=== PATIENT | male | born 1955 | race Two or more races ===

== ENCOUNTER 2018-01-07 10:41 | Day surgery (SDC) | payer BC ==
[2018-01-05 10:15] VITALS: BMI 31.4
[~2018-01-07 10:41] MED LIST: LACTATED RINGERS 1,000 ML IV SCH
[2018-01-07] MEDS ORDERED: LIDOCAINE 1% 20 ML VIAL (10MG/ML) FOR IV START INTRADERMA ONE (11:59)
[2018-01-07 12:01] VITALS: TEMP 97.7
[2018-01-07] MEDS ORDERED: LIDOCAINE 1% INJ 10MG/ML (20 ML MDV) ONE (12:08)
[2018-01-07] MEDS ORDERED: PROPOFOL 10 MG/ML 20 ML VIAL IV ONE (12:08)
--- NOTE | 2018-01-07 12:08 | P.GSHP ---
History of Present Illness H&P Date: 01/07/18 Chief Complaint: Rectal bleeding Patient has noticed some recent rectal bleeding. Here today for colonoscopy. No other bowel complaints. Rectal bleeding has been at the last several weeks. Past Medical History Past Medical History: GERD/Reflux, Thyroid Disorder Additional Past Medical History / Comment(s): Low thyroid, blood in stool. Ankle sprain. History of Any Multi-Drug Resistant Organisms: None Reported Past Surgical History: No Surgical Hx Reported Additional Past Surgical History / Comment(s): Colonoscopy Past Anesthesia/Blood Transfusion Reactions: No Reported Reaction Additional Past Anesthesia/Blood Transfusion Reaction / Comment(s): Never under anesthesia Smoking Status: Former smoker - Past Family History Father Family Medical History: Cancer, Neurologic Disorder Additional Family Medical History / Comment(s): Colon cancer, Parkinson's Mother Family Medical History: Cancer Additional Family Medical History / Comment(s): Colon cancer, Lung Medications and Allergies Home Medications Medication Instructions Recorded Confirmed Type Ibuprofen [Motrin] 600 mg PO Q8HR PRN 01/05/18 01/05/18 History Naproxen 250 mg PO DAILY 01/05/18 01/05/18 History Papaya 1 each PO Q8H 01/05/18 01/05/18 History Allergies Allergy/AdvReac Type Severity Reaction Status Date / Time No Known Allergies Allergy Verified 01/07/18 11:43 Surgical - Exam Vital Signs Temp Pulse Resp BP Pulse Ox 97.7 F 83 16 113/79 95 01/07/18 12:00 01/07/18 12:00 01/07/18 12:00 01/07/18 12:00 01/07/18 12:00 Physical exam: General: Well-developed, well-nourished HEENT: Normocephalic, sclerae nonicteric Abdomen: Nontender, nondistended Extremities: No edema Neuro: Alert and oriented Assessment and Plan (1) Rectal bleeding Narrative/Plan: Will proceed with colonoscopy. Current Visit: Yes Status: Acute Code(s): K62.5 - HEMORRHAGE OF ANUS AND RECTUM SNOMED Code(s): 31959592
--- NOTE | 2018-01-07 12:23 | P.PCN ---
Date of Procedure: 01/07/18 Procedure(s) Performed: PREOPERATIVE DIAGNOSIS: GI bleed POSTOPERATIVE DIAGNOSIS: Diverticulosis, small hemorrhoids PROCEDURE: Colonoscopy ANESTHESIA: MAC SURGEON: Srinivasa Singleton M.D. SPECIMENS: None ENDOSCOPIC PROCEDURE: The patient was placed on the endoscopy table in the left decubitus position. The Olympus colonoscope was inserted into the anus and passed under direct visualization to the base of the cecum. The appendiceal orifice was visualized. From that point the scope was slowly withdrawn inspecting all surfaces carefully. There were no neoplastic inflammatory or polypoid lesions throughout the cecum, ascending, transverse, descending, sigmoid and rectum. There was moderate left-sided diverticulosis noted. Digital rectal examination revealed small internal and external hemorrhoids without any active bleeding. The patient was taken to the recovery room in stable condition per anesthesia guidelines. RECOMMENDATIONS: Increase fiber. Follow colonoscopy in 10 years.
[2018-01-07 12:31] VITALS: RESP 18
[2018-01-07 12:48] VITALS: BP 117/72; PULSE 83
--- NOTE | 2018-01-09 14:38 | CDI ---
Outpatient Documentation Clarification Form Date: 01/09/18 CDS/Ash Conveyor Operator Name: Kelli Franklin Phone: If any questions, call Dina Finnegan Qualitative Executive Researcher at [phone] Patient Name: Caroline Orozco Admit Date: 01/07/18 Discharge Date: 01/07/18 ATTENTION: The [facility] Coding Staff appreciate your assistance in clarifying documentation. Please respond to the clarification below the line at the bottom and electronically sign. The [facility] Coding staff will review the response and follow-up if needed. Please note: Queries are made part of the Legal Health Record. If you have any questions, please contact the Qualitative Executive Researcher. Dear Dr. Singleton, What is the cause of the rectal bleeding? What is the cause of the GI bleeding? Thank you for your kind consideration. Etiology of GI bleeding unclear but likely hemorrhoidal. MTDD
== END 2018-01-07 13:03 | disposition home or self-care (01) ==
LOC: ORWHC2ENDO 10:41
PROVIDERS: ATTEND Surgery
DX: K92.2 Gastrointestinal hemorrhage, unspecified (principal); K57.30 Diverticulosis of large intestine without perforation or abscess without bleeding; K64.8 Other hemorrhoids; K64.4 Residual hemorrhoidal skin tags; K21.9 Gastro-esophageal reflux disease without esophagitis; E03.9 Hypothyroidism, unspecified; Z79.1 Long term (current) use of non-steroidal anti-inflammatories (NSAID); Z87.891 Personal history of nicotine dependence
CPT/HCPCS: 45378; J2001; J2704

== ENCOUNTER 2023-06-10 08:32 | Emergency (ER) | payer MEDICARE, BC ==
[2023-06-10] MEDS ORDERED: TOPICAL SKIN ADHESIVE 1 EACH AMP TOPICAL ONE (09:03)
[2023-06-10] MEDS: LIDOCAINE/EPINEPHR/TETRACAINE 5 ML BOTTLE TOPICAL ONE (09:11)
[2023-06-10] MEDS: LIDOCAINE 1% INJ 10MG/ML (20 ML MDV) SQ ONE (09:19)
--- NOTE | 2023-06-10 09:29 | ED ---
Head Injury HPI - General Chief complaint: Wound/Laceration Stated complaint: FALL,facial Lac Time Seen by Provider: 06/10/23 08:46 Source: patient, family, RN notes reviewed Mode of arrival: ambulatory Limitations: no limitations - History of Present Illness Initial comments: This is a 68-year-old male who presents to the emergency department for a head injury. Patient tripped and fell and hit his head on his dresser. Denies any loss of consciousness. Not taking any blood thinners. He does have a laceration above the left eyebrow. Tetanus vaccine is up-to-date. Complaint: head injury - Related Data Home Medications Medication Instructions Recorded Confirmed Ibuprofen [Motrin] 600 mg PO Q8HR PRN 01/05/18 01/05/18 Naproxen 250 mg PO DAILY 01/05/18 01/05/18 Papaya 1 each PO Q8H 01/05/18 01/05/18 Allergies/Adverse reactions: Allergies Allergy/AdvReac Type Severity Reaction Status Date / Time No Known Allergies Allergy Verified 01/07/18 11:43 Review of Systems ROS Statement: Those systems with pertinent positive or pertinent negative responses have been documented in the HPI. ROS Other: All systems not noted in ROS Statement are negative. Past Medical History Past Medical History: GERD/Reflux, Thyroid Disorder Additional Past Medical History / Comment(s): Low thyroid, blood in stool. Ankle sprain. History of Any Multi-Drug Resistant Organisms: None Reported Past Surgical History: No Surgical Hx Reported Additional Past Surgical History / Comment(s): Colonoscopy Past Anesthesia/Blood Transfusion Reactions: No Reported Reaction Additional Past Anesthesia/Blood Transfusion Reaction / Comment(s): Never under anesthesia Past Psychological History: No Psychological Hx Reported Past Alcohol Use History: Occasional Past Drug Use History: None Reported - Past Family History Father Family Medical History: Cancer, Neurologic Disorder Additional Family Medical History / Comment(s): Colon cancer, Parkinson's Mother Family Medical History: Cancer Additional Family Medical History / Comment(s): Colon cancer, Lung General Exam Limitations: no limitations General appearance: alert, in no apparent distress Head exam: Present: other (3 cm laceration above the left eyebrow. Minor active bleeding.) Eye exam: Present: normal appearance, PERRL, EOMI. Absent: scleral icterus, conjunctival injection, periorbital swelling Respiratory exam: Present: normal lung sounds bilaterally. Absent: respiratory distress, wheezes, rales, rhonchi, stridor Cardiovascular Exam: Present: regular rate, normal rhythm, normal heart sounds. Absent: systolic murmur, diastolic murmur, rubs, gallop, clicks Neurological exam: Present: alert, oriented X3, CN II-XII intact Psychiatric exam: Present: normal affect, normal mood Course Vital Signs 06/10/23 06/10/23 08:38 09:42 Temperature 97.8 F 98.2 F Pulse Rate 100 84 Respiratory 20 18 Rate Blood Pressure 124/88 112/79 O2 Sat by Pulse 99 96 Oximetry Procedures - Laceration Laceration #1 Consent Obtained: verbal consent Indication: laceration Site: face Size (cm): 3 Description: linear Depth: simple, single layer Anesthetic Used: lidocaine 1% Anesthesia Technique: local infiltration Amount (mls): 3 Pre-repair: wound explored, irrigated extensively Type of Sutures: nylon Size of Sutures: 6-0 Number of Sutures: 4 Technique: simple, interrupted Medical Decision Making - Medical Decision Making This is a 68 year old male who presents to the emergency department for a head injury. Was pt. sent in by a medical professional or institution? @ -No Did you speak to anyone other than the patient for history? @ -No Did you review nursing and triage notes? @ -Yes, and I agree, it is accurate with regards to the patient's symptoms. Were old charts reviewed? @ -No Differential Diagnosis? @ -Differential Diagnosis Head Injury: Contusion, hematoma, intracranial hemorrhage, skull fracture, whiplash, concussion, this is not meant to be an all-inclusive list. EKG interpreted by me (3pts min.)? @ -Not obtained X-rays interpreted by me (1pt min.)? @ -Not obtained CT interpreted by me (1pt min.)? @ -CT scan of the brain obtained. My interpretation identifies no evidence of an acute intracranial hemorrhage. U/S interpreted by me (1pt. min.)? @ -Not obtained What testing was considered but not performed? (CT, X-rays, U/S, labs)? Why? @ -None What meds were considered but not given? Why? @ -None Did you discuss the management of the patient with other professionals? @ -No Did you reconcile home meds? @ -No Was smoking cessation discussed for >3mins.? @ -No Was critical care preformed (if so, how long)? @ -No Were there social determinants of health that impacted care today? How? (Homelessness, low income, unemployed, alcoholism, drug addiction, transportation, low edu. Level, literacy, decrease access to med. care, intermediate, rehab)? @ -No Was there de-escalation of care discussed even if they declined? (Discuss DNR or withdrawal of care, Hospice)? @ -No What co-morbidities impacted this encounter? (DM, HTN, Smoking, COPD, CAD, Cancer, CVA, Hep., AIDS, mental health diagnosis, sleep apnea, morbid obesity)? @ -None Was patient admitted / discharged? @ -Discharged. CT scan of the brain obtained revealing no acute process. Laceration was repaired with sutures. Patient's tetanus vaccine is already up-to-date. He is advised to return in 7 to 10 days for suture removal. Advised ibuprofen and Tylenol as needed for pain relief. Patient discharged home in stable condition. Undiagnosed new problem with uncertain prognosis? @ -None Drug Therapy requiring intensive monitoring for toxicity (Heparin, Nitro, Insulin, Cardizem)? @ -None Were any procedures done? @ -Laceration repair with sutures. Diagnosis/symptom? @ -Head injury, laceration Acute, or Chronic, or Acute on Chronic? @ -Acute Uncomplicated (without systemic symptoms) or Complicated (systemic symptoms)? @ -Uncomplicated Side effects of treatment? @ -None Exacerbation, Progression, or Severe Exacerbation] @ -Not applicable Poses a threat to life or bodily function? @ -No Return precautions reviewed in depth, the patient is instructed to return to the emergency department with any new, worsening, or concerning symptoms. Patient verbalized understanding. This case was discussed in detail with the attending ED physician, Dr. Long. Presentation, findings, and treatment plan discussed in detail as well. - Radiology Data Radiology results: report reviewed, image reviewed Disposition Clinical Impression: Laceration, Head injury Disposition: HOME SELF-CARE Instructions (If sedation given, give patient instructions): Care For Your Stitches (ED) Additional Instructions: Return to the emergency department with any new, worsening, or concerning symptoms and in 7-10 days for removal of the stitches. Alternate with Ibuprofen and Tylenol as needed for pain relief. Follow up with your primary care provider in 1-2 days. Is patient prescribed a controlled substance at d/c from ED?: No Referrals: Rayray Miranda MD [Primary Care Provider] - 1-2 days Time of Disposition: 10:00
--- NOTE | 2023-06-10 09:55 | CT ---
EXAMINATION TYPE: CT brain wo con CT DLP: 1195.4 mGycm, Automated exposure control for dose reduction was used. DATE OF EXAM: 06/10/2023 9:34 AM COMPARISON: None. CLINICAL INDICATION:Male, 68 years old with history of Head injury, Fall, struck forehead on dresser TECHNIQUE: Brain: Axial CT images of the brain were obtained with coronal and sagittal reformats created and rev iewed. Contrast used: None. Oral contrast used: None. FINDINGS: Brain: Extra-axial spaces: No abnormal extra-axial fluid collections. Ventricular system: Dilatation in proportion to cerebral atrophy. Cerebral parenchyma: Cerebral atrophy. No acute intraparenchymal hemorrhage or mass effect. The scanlon -white junction is well differentiated. Scattered hypoattenuating areas are seen within the white mat ter. Cerebellum: Unremarkable. Mass effect: No evidence of midline shift. Intracranial vasculature: Atherosclerotic calcifications of the intracranial vessels. Soft tissues: Left scalp soft tissue edema. Calvarium/osseous structures: No depressed skull fracture. Paranasal sinuses and mastoid air cells: Mild scattered paranasal sinus disease. Visualized orbits: Orbital contents are intact. IMPRESSION: 1. No acute intracranial process. 2. Nonspecific white matter changes, likely secondary to chronic small vessel ischemic disease. 3. Left scalp edema. No evidence of fracture.
[2023-06-10 10:34] VITALS: BP 112/79; PULSE 84; RESP 18; TEMP 98.2
== END 2023-06-10 10:10 | disposition home or self-care (01) ==
LOC: EC 08:32
DX: S01.81XA Laceration without foreign body of other part of head, initial encounter (principal); W01.0XXA Fall on same level from slipping, tripping and stumbling without subsequent striking against object, initial encounter
CPT/HCPCS: 70450; 99284; 12011; J2001

== ENCOUNTER → 2023-08-20 | Outpatient (CLI) | payer MEDICARE, BC ==
--- NOTE | 2023-08-26 12:07 | FL ---
EXAMINATION TYPE: FL barium swallow DATE OF EXAM: 08/20/2023 COMPARISON: None HISTORY: Gastroesophageal reflux phlegm sticking in throat TECHNIQUE: A double air contrast esophagram study is performed. FINDINGS: HILLARY: 1607.73 Fluoroscopy time: 16 seconds Images: 79 Esophagus dilates to normal caliber is normal contour to the gastroesophageal junction. Gastroesophag eal junction opens to normal caliber. No intraluminal or extramural defects are evident. Contrast pas ses easily without hesitancy or stenosis. Note is made of a self reducing sliding type hiatal hernia identified during the examination. IMPRESSION: 1. Small hiatal hernia. 2. Esophagus otherwise appears unremarkable.
== END | disposition home or self-care (01) ==
LOC: RADUSWWP 09:17
PROVIDERS: ATTEND Otolaryngology
DX: K44.9 Diaphragmatic hernia without obstruction or gangrene (principal); K21.9 Gastro-esophageal reflux disease without esophagitis
CPT/HCPCS: 74220

== ENCOUNTER 2023-10-24 09:56 | Day surgery (SDC) | payer MEDICARE, BC ==
[2023-10-21 14:13] VITALS: BMI 40.5
[~2023-10-24 09:56] MED LIST changes: -LACTATED RINGERS 1,000 ML IV SCH; +LIDOCAINE 1% (10MG/ML) FOR IV START INTRADERMA PRN
[2023-10-24] MEDS: LACTATED RINGERS 1,000 ML IV SCH (10:27)
[2023-10-24] MEDS: IV FLUID CONTINUATION 1,000 ML IV ONE (10:32)
[2023-10-24 10:37] VITALS: TEMP 97.7
[2023-10-24] MEDS ORDERED: PROPOFOL 10 MG/ML 20 ML VIAL IV ONE (11:24)
--- NOTE | 2023-10-24 11:35 | P.PCN ---
Date of Procedure: 10/24/23 Procedure(s) Performed: BRIEF HISTORY: Patient is a 68-year-old, pleasant, white male scheduled for endoscopy as a part evaluation of chronic cough for the last 10 years duration. He denies any heartburn. No dysphagia or odynophagia. He has seen ENT recently.. PROCEDURE PERFORMED: Esophagogastroduodenoscopy with biopsy. PREOPERATIVE DIAGNOSIS: Chronic cough. IV sedation per anesthesia. PROCEDURE: After informed consent was obtained, the patient was brought into the endoscopy unit. IV sedation was administered by Anesthesia under continuous monitoring. Initially the Olympus GIF-140 video endoscope was inserted into the mouth. Esophagus intubated without any difficulty. It was gradually advanced into the stomach and duodenum and carefully examined. The bulb and the second part of the duodenum appeared normal. The scope at this time was withdrawn to the stomach, adequately insufflated with air, and upon careful examination, mucosa of the antrum had linear areas of erythema in the antrum consistent with gastritis and biopsies were done from this area. Mucosa of the, body, cardia and the fundus appeared normal. The scope was then withdrawn into the esophagus. Small hiatal hernia noted. The GE junction was located at 43 cm from the incisors. It appeared irregular but no no erosions or ulcerations seen. Rest of the esophagus appeared normal. Biopsies were done from the distal esophagus and the patient tolerated the procedure well. IMPRESSION: 1. Small hiatal hernia. 2. Irregular GE junction but no evidence of esophagitis 3. Mild antral gastritis. RECOMMENDATIONS: The findings of this examination were discussed with the patient as well as his family. He was advised to follow-up with the biopsy results. Recommend a trial of omeprazole 20 mg daily for 3 months to see for any improvement in his symptoms..
[2023-10-24 12:13] VITALS: BP 122/70; PULSE 65; RESP 20
== END 2023-10-24 12:25 | disposition home or self-care (01) ==
LOC: ORWHC2ENDO 09:56
PROVIDERS: ATTEND Internal Medicine Gastroenterology
DX: K29.50 Unspecified chronic gastritis without bleeding (principal); K44.9 Diaphragmatic hernia without obstruction or gangrene; K31.A0 Gastric intestinal metaplasia, unspecified; E78.5 Hyperlipidemia, unspecified; E07.9 Disorder of thyroid, unspecified; K21.9 Gastro-esophageal reflux disease without esophagitis; Z79.890 Hormone replacement therapy; Z79.899 Other long term (current) drug therapy; Z88.0 Allergy status to penicillin
CPT/HCPCS: 88305; 43239; J2704

== ENCOUNTER 2024-02-08 08:33 | Emergency (ER) | payer MEDICARE, BC ==
[2024-02-08 08:45] VITALS: TEMP 98.4
--- NOTE | 2024-02-08 09:51 | ED ---
General Adult HPI - General Source: patient, RN notes reviewed, old records reviewed Mode of arrival: ambulatory Limitations: no limitations <Sky Long - Last Filed: 02/08/24 09:49> - General Source: patient, RN notes reviewed, old records reviewed Mode of arrival: ambulatory Limitations: no limitations <Karina Pérez - Last Filed: 02/08/24 14:06> - General Chief complaint: Extremity Problem,Nontraumatic Stated complaint: numbness in legs Time Seen by Provider: 02/08/24 09:35 - History of Present Illness Initial comments: Quick note: Patient is a 68-year-old male who presents emergency department complaining of lower extremity numbness as well as pain. Has a history of diab etes, GERD, thyroid disorder. Is not on blood thinners. States that for the last approximately 10 days has been noticing shooting pains coming from his feet along the posterior aspect of both legs as well as numbness in the sock distribution of both legs. Also some tingling on the bottom of his feet and his toes. Occasion will have pain shoot from his lumbar spine as well down the posterior aspect of both legs. Patient is uncertain what is going on as this is new. No new injuries. No new medications. Is concerned regarding possibly a circulation. Presents for further evaluation at this time. Patient does have a history of hyperlipidemia. (Sky Long) 68-year-old male presenting to the ER with a chief complaint of bilateral lower extremity numbness and pain. Patient states for the past 10 days he has had increasing of numbness and tingling sensation to bilateral lower extremities. He states that for started on the bottom of his feet and slowly traveled up to the back of his calf. He states he does have shooting pain in his posterior thigh into his back. Patient is concerned he is not getting blood flow to his toes. Patient does report a couple of days ago he noticed "bulging vessels" on posterior calf which also worried him about blood flow. He denies any injuries or traumas. Patient denies a history of diabetes. Patient denies any history of DVTs/PEs or recent travel. No history of vascular disease. No current blood thinning medications. Denies chest pain, shortness of breath or other complaints. Denies any saddle paresthesias or bowel or bladder incontinence. (Karina Pérez) - Related Data Home Medications Medication Instructions Recorded Confirmed Levothyroxine Sodium [Synthroid] 75 mcg PO DAILY 10/21/23 02/08/24 Pravastatin Sodium [Pravachol] 20 mg PO HS 10/21/23 02/08/24 Albuterol Inhaler [Ventolin Hfa 2 puff INHALATION RT-Q6H PRN 02/08/24 02/08/24 Inhaler] Albuterol Nebulized [Ventolin 2.5 mg INHALATION RT-QID PRN 02/08/24 02/08/24 Nebulized] Ergocalciferol (Vitamin D2) 1,250 mcg PO Q14D 02/08/24 02/08/24 [Drisdol (50,000 Iu)] Fluticasone Propion/Salmeterol 1 puff INHALATION RT-BID 02/08/24 02/08/24 [Wixela 250-50 Inhub] Ibuprofen [Motrin] 800 mg PO QID PRN 02/08/24 02/08/24 Omeprazole 20 mg PO DAILY 02/08/24 02/08/24 Sildenafil Citrate [Sildenafil] 20 - 100 mg PO DAILY PRN 02/08/24 02/08/24 Allergies Allergy/AdvReac Type Severity Reaction Status Date / Time amoxicillin Allergy Rash/Hives Verified 02/08/24 12:32 Review of Systems ROS Other: All systems not noted in ROS Statement are negative. <Sky Long - Last Filed: 02/08/24 09:49> ROS Other: All systems not noted in ROS Statement are negative. <Karina Pérez - Last Filed: 02/08/24 14:06> ROS Statement: Those systems with pertinent positive or pertinent negative responses have been documented in the HPI. Past Medical History Past Medical History: GERD/Reflux, Thyroid Disorder Additional Past Medical History / Comment(s): Low thyroid, blood in stool. Ankle sprain. History of Any Multi-Drug Resistant Organisms: None Reported Past Surgical History: No Surgical Hx Reported Additional Past Surgical History / Comment(s): Colonoscopy Past Anesthesia/Blood Transfusion Reactions: No Reported Reaction Additional Past Anesthesia/Blood Transfusion Reaction / Comment(s): no general anesth. hx Past Psychological History: No Psychological Hx Reported Smoking Status: Former smoker Past Alcohol Use History: Occasional Past Drug Use History: None Reported - Past Family History Father Family Medical History: Cancer, Neurologic Disorder Additional Family Medical History / Comment(s): Colon cancer, Parkinson's Mother Family Medical History: Cancer Additional Family Medical History / Comment(s): Colon cancer, Lung <Sky Long - Last Filed: 02/08/24 09:49> General Exam Limitations: no limitations <Sky Long - Last Filed: 02/08/24 09:49> General appearance: alert, in no apparent distress Respiratory exam: Present: normal lung sounds bilaterally. Absent: respiratory distress, wheezes, rales, rhonchi, stridor Cardiovascular Exam: Present: regular rate, normal rhythm, normal heart sounds. Absent: systolic murmur, diastolic murmur, rubs, gallop, clicks Extremities exam: Present: normal inspection, full ROM, normal capillary refill, other (2+ bilateral dorsalis pedis and posterior tibialis pulses. Varicose veins noted on bilateral popliteal fossa). Absent: tenderness, pedal edema, joint swelling, calf tenderness Back exam: Present: normal inspection Neurological exam: Present: alert, oriented X3, CN II-XII intact Skin exam: Present: warm, dry, intact, normal color. Absent: rash <Karina Pérez - Last Filed: 02/08/24 14:06> - General Exam Comments Initial Comments: General: Appears in no acute distress. HEAD: Normal with no signs of head trauma. EYES: EOMI. ENT: Hearing grossly intact. RESPIRATORY: No respiratory distress. C/V: Regular rate and rhythm. ABD: Abdomen is nondistended. EXT: No obvious deformity. SKIN: No rashes or lesions observed on exposed skin. NEURO: Alert and oriented. (Sky Long) Course Vital Signs 02/08/24 02/08/24 08:42 12:59 Temperature 98.4 F Pulse Rate 92 71 Respiratory 20 16 Rate Blood Pressure 138/87 133/81 O2 Sat by Pulse 98 100 Oximetry Medical Decision Making <Sky Long - Last Filed: 02/08/24 09:49> - Lab Data Result diagrams: 02/08/24 10:07 02/08/24 10:07 - Radiology Data Radiology results: report reviewed, image reviewed <Karina Pérez - Last Filed: 02/08/24 14:06> - Medical Decision Making Quick note portion of this visit completed by Dr. Sky Long MD. (Sky Long) Was pt. sent in by a medical professional or institution (, ROBERTO, MIXING TECHNICIAN, urgent care, hospital, or long term...) When possible be specific @ -No Did you speak to anyone other than the patient for history (EMS, parent, family, police, friend...)? What history was obtained from this source @ -, at bedside, aiding in HPI and past medical history. Did you review nursing and triage notes (agree or disagree)? Why? @ -I reviewed and agree with nursing and triage notes Were old charts reviewed (outside hosp., previous admission, EMS record, old EKG, old radiological studies, urgent care reports/EKG's, long term records)? Report findings @ -No old charts were reviewed Differential Diagnosis (chest pain, altered mental status, abdominal pain women, abdominal pain men, vaginal bleeding, weakness, fever, dyspnea, syncope, headache, dizziness, GI bleed, back pain, seizure, CVA, palpatations, mental health, musculoskeletal)? @ -Differential Musculoskeletal Muscular strain, contusion, ligament sprain, fracture, arthritis, septic arthritis, bursitis, cellulitis, muscle spasm, nerve compression, DVT, arterial occlusion, herpes zoster, electrolyte abnormality, tumor.... This is not meant to be in all inclusive list EKG interpreted by me (3pts min.). @ -None done X-rays interpreted by me (1pt min.). @ -Lumbar spine x-rays interpreted by me negative for acute fractures or malalignment. CT interpreted by me (1pt min.). @ -None done U/S interpreted by me (1pt. min.). @ -Ultrasound venous Doppler bilateral lower extremities negative for acute evidence of DVT. What testing was considered but not performed or refused? (CT, X-rays, U/S, labs)? Why? @ -None What meds were considered but not given or refused? Why? @ -None Did you discuss the management of the patient with other professionals (professionals i.e. ROBERTO Palmer, MIXING TECHNICIAN, lab, RT, psych nurse, renal social worker, shear grinder operator, teacher, adult parole officer, case management manager)? Give summary @ -No Was smoking cessation discussed for >3mins.? @ -No Was critical care preformed (if so, how long)? @ -No Were there social determinants of health that impacted care today? How? (Homelessness, low income, unemployed, alcoholism, drug addiction, transportation, low edu. Level, literacy, decrease access to med. care, skilled nursing, rehab)? @ -No Was there de-escalation of care discussed even if they declined (Discuss DNR or withdrawal of care, Hospice)? DNR status @ -No What co-morbidities impacted this encounter? (DM, HTN, Smoking, COPD, CAD, Cancer, CVA, ARF, Chemo, Hep., AIDS, mental health diagnosis, sleep apnea, morbid obesity)? @ -None Was patient admitted / discharged? Hospital course, mention meds given and route, prescriptions, significant lab abnormalities, going to OR and other pertinent info. @ -Discharge. 68-year-old male presenting to the ER with a chief complaint of bilateral lower extremity numbness and pain x 10 days. No known injuries. History and physical exam completed. Vitals within normal limits. Patient in no signs of acute distress. Bilateral lower extremities neurovascularly intact with 2+ palpable DP and PT pulses bilaterally. Brisk cap refill. No overlying skin changes. There are varicose veins noted bilaterally and popliteal fossa. No calf tenderness. No red flag symptoms indicative cauda equina syndrome. Patient is able to ambulate without difficulty. Due to concern of possible DVT, laboratory studies and ultrasound will be obtained. Laboratory studies unremarkable. Urine analysis is hemorrhagic and will be sent for culture. Antibiotics will be held until culture pending as patient is asymptomatic. Ultrasound venous Doppler bilateral lower extremities negative for acute evidence of DVT. Upon reevaluation, patient resting comfortably in exam room no signs of acute distress. Results discussed with patient, all questions answered. Advised patient to follow-up closely with PCP and possibly vascular, referral given. Numbness believed to be neuropathy. Patient stable for discharge at this time. Strict return parameters discussed. Patient discharged in stable condition with follow-up to PCP. Patient verbally expressed understanding and agreement with care plan. Case discussed with ED attending, Dr. Long. Undiagnosed new problem with uncertain prognosis? @ -No Drug Therapy requiring intensive monitoring for toxicity (Heparin, Nitro, Insulin, Cardizem)? @ -No Were any procedures done? @ -No Diagnosis/symptom? @ -Varicose veins/neuropathy Acute, or Chronic, or Acute on Chronic? @ -Acute Uncomplicated (without systemic symptoms) or Complicated (systemic symptoms)? @ -Uncomplicated Side effects of treatment? @ -No Exacerbation, Progression, or Severe Exacerbation? @ -No Poses a threat to life or bodily function? How? (Chest pain, [place], OR, pneumonia, PE, COPD, DKA, ARF, appy, cholecystitis, CVA, Diverticulitis, Homicidal, Suicidal, threat to staff... and all critical care pts) @ -No (Karina Pérez) - Lab Data Lab Results 02/08/24 02/08/24 02/08/24 Range/Units 10:07 10:07 10:07 WBC 9.8 (3.8-10.6) k/uL RBC 5.38 (4.30-5.90) m/uL Hgb 16.0 (13.0-17.5) gm/dL Hct 49.7 (39.0-53.0) % MCV 92.4 (80.0-100.0) fL MCH 29.8 (25.0-35.0) pg MCHC 32.3 (31.0-37.0) g/dL RDW 13.1 (11.5-15.5) % Plt Count 251 (150-450) k/uL MPV 7.2 Neutrophils % 65 % Lymphocytes % 24 % Monocytes % 6 % Eosinophils % 3 % Basophils % 1 % Neutrophils # 6.3 (1.3-7.7) k/uL Lymphocytes # 2.3 (1.0-4.8) k/uL Monocytes # 0.6 (0-1.0) k/uL Eosinophils # 0.3 (0-0.7) k/uL Basophils # 0.1 (0-0.2) k/uL PT 10.6 (10.0-12.5) sec INR 1.0 (<1.2) APTT 24.7 (22.0-30.0) sec Sodium 140 (137-145) mmol/L Potassium 4.5 (3.5-5.1) mmol/L Chloride 105 (98-107) mmol/L Carbon Dioxide 27 (22-30) mmol/L Anion Gap 8 mmol/L BUN 14 (9-20) mg/dL Creatinine 0.76 (0.66-1.25) mg/dL Est GFR (CKD-EPI)AfAm >90 (>60 ml/min/1.73 sqM) Est GFR (CKD-EPI)NonAf >90 (>60 ml/min/1.73 sqM) Glucose 105 H (74-99) mg/dL Calcium 9.3 (8.4-10.2) mg/dL Magnesium 2.2 (1.6-2.3) mg/dL Total Bilirubin 0.9 (0.2-1.3) mg/dL AST 31 (17-59) U/L ALT 30 (4-49) U/L Alkaline Phosphatase 93 (38-126) U/L Total Protein 7.4 (6.3-8.2) g/dL Albumin 4.5 (3.5-5.0) g/dL Urine Color Urine Appearance (Clear) Urine pH (5.0-8.0) Ur Specific [place] (1.001-1.035) Urine Protein (Negative) Urine Glucose (UA) (Negative) Urine Ketones (Negative) Urine Blood (Negative) Urine Nitrite (Negative) Urine Bilirubin (Negative) Urine Urobilinogen (<2.0) mg/dL Ur Leukocyte Esterase (Negative) Urine RBC (0-5) /hpf Ur Squamous Epith Cells (0-4) /hpf Urine Mucus (None) /hpf 02/08/24 Range/Units 12:10 WBC (3.8-10.6) k/uL RBC (4.30-5.90) m/uL Hgb (13.0-17.5) gm/dL Hct (39.0-53.0) % MCV (80.0-100.0) fL MCH (25.0-35.0) pg MCHC (31.0-37.0) g/dL RDW (11.5-15.5) % Plt Count (150-450) k/uL MPV Neutrophils % % Lymphocytes % % Monocytes % % Eosinophils % % Basophils % % Neutrophils # (1.3-7.7) k/uL Lymphocytes # (1.0-4.8) k/uL Monocytes # (0-1.0) k/uL Eosinophils # (0-0.7) k/uL Basophils # (0-0.2) k/uL PT (10.0-12.5) sec INR (<1.2) APTT (22.0-30.0) sec Sodium (137-145) mmol/L Potassium (3.5-5.1) mmol/L Chloride (98-107) mmol/L Carbon Dioxide (22-30) mmol/L Anion Gap mmol/L BUN (9-20) mg/dL Creatinine (0.66-1.25) mg/dL Est GFR (CKD-EPI)AfAm (>60 ml/min/1.73 sqM) Est GFR (CKD-EPI)NonAf (>60 ml/min/1.73 sqM) Glucose (74-99) mg/dL Calcium (8.4-10.2) mg/dL Magnesium (1.6-2.3) mg/dL Total Bilirubin (0.2-1.3) mg/dL AST (17-59) U/L ALT (4-49) U/L Alkaline Phosphatase (38-126) U/L Total Protein (6.3-8.2) g/dL Albumin (3.5-5.0) g/dL Urine Color Light Yellow Urine Appearance Clear (Clear) Urine pH 7.0 (5.0-8.0) Ur Specific [place] 1.022 (1.001-1.035) Urine Protein Negative (Negative) Urine Glucose (UA) Negative (Negative) Urine Ketones Negative (Negative) Urine Blood Small H (Negative) Urine Nitrite Negative (Negative) Urine Bilirubin Negative (Negative) Urine Urobilinogen <2.0 (<2.0) mg/dL Ur Leukocyte Esterase Negative (Negative) Urine RBC 11 H (0-5) /hpf Ur Squamous Epith Cells <1 (0-4) /hpf Urine Mucus Rare H (None) /hpf Disposition <Sky Long - Last Filed: 02/08/24 09:49> Is patient prescribed a controlled substance at d/c from ED?: No Time of Disposition: 12:41 <Karina Pérez - Last Filed: 02/08/24 14:06> Clinical Impression: Varicose veins of calf Disposition: HOME SELF-CARE Condition: Stable Instructions (If sedation given, give patient instructions): Venous Insufficiency (DC) Additional Instructions: Recommend close follow-up with PCP. Return to the ER for any new or worsening concerns. Referrals: Rayray Miranda MD [Primary Care Provider] - 1-2 days Ariana Storey DO [STAFF PHYSICIAN] - 1-2 days
[2024-02-08 10:15] LABS: Basophils # (A) 0.1 k/uL (0-0.2); Basophils % (A) 1 %; Eosinophils # (A) 0.3 k/uL (0-0.7); Eosinophils % (A) 3 %; HCT 49.7 % (39.0-53.0); Lymphocytes # (A) 2.3 k/uL (1.0-4.8); Lymphocytes % (A) 24 %; MCH 29.8 pg (25.0-35.0); MCHC 32.3 g/dL (31.0-37.0); MCV 92.4 fL (80.0-100.0); Mean Platelet Volume 7.2; Monocytes # (A) 0.6 k/uL (0-1.0); Monocytes % (A) 6 %; Neutrophils # (A) 6.3 k/uL (1.3-7.7); Neutrophils % (A) 65 %; Platelet Count 251 k/uL (150-450); RBC 5.38 m/uL (4.30-5.90); RDW 13.1 % (11.5-15.5); WBC 9.8 k/uL (3.8-10.6)
[2024-02-08 10:24] LABS: ALT 30 U/L (4-49); AST 31 U/L (17-59); African American GFR (CKD) >90 (>60 ml/min/1.73 sqM); Albumin 4.5 g/dL (3.5-5.0); Alkaline Phosphatase 93 U/L (38-126); Anion Gap 8 mmol/L; Blood Urea Nitrogen 14 mg/dL (9-20); Calcium 9.3 mg/dL (8.4-10.2); Carbon Dioxide 27 mmol/L (22-30); Chloride 105 mmol/L (98-107); Glucose 105 mg/dL (74-99); Magnesium 2.2 mg/dL (1.6-2.3); Non-African American GFR(CKD) >90 (>60 ml/min/1.73 sqM); Partial Thromboplastin Time 24.7 sec (22.0-30.0); Potassium 4.5 mmol/L (3.5-5.1); Prothrombin Time 10.6 sec (10.0-12.5); Sodium 140 mmol/L (137-145); Total Bilirubin 0.9 mg/dL (0.2-1.3); Total Protein 7.4 g/dL (6.3-8.2)
--- NOTE | 2024-02-08 10:31 | XR ---
Lumbar spine HISTORY: Lower extremity radiculopathy. COMPARISON: None TECHNIQUE: 3 views lumbar spine were obtained. FINDINGS: The lumbar vertebral segments are normal in height and alignment and there is no fracture or subluxat ion. There is mild spondylosis throughout the lumbar spine indicating mild degenerative disc disease but t he disc spaces are well maintained in height. The sacrum and SI joints normal. This probable mild facet arthropathy in the lower lumbar spine. IMPRESSION: 1. Minimal degenerative disease throughout the lumbar spine. 2. No lumbar spine fracture or malalignment. [facility], Workstation: [facility], 02/08/2024 10:29 AM
--- NOTE | 2024-02-08 11:26 | US ---
EXAMINATION TYPE: US venous doppler duplex LE BI DATE OF EXAM: 02/08/2024 11:13 AM COMPARISON: NONE CLINICAL INDICATION: Male, 68 years old with history of pain; numbness in both legs and feet for 10 d ays, no h/o dv, TECHNIQUE: The lower extremity deep venous system is examined utilizing real time linear array sonog yariel with graded compression, color doppler sonography, and spectral doppler. SIDE PERFORMED: Bilateral FINDINGS: VESSELS IMAGED: Common Femoral Vein Deep Femoral Vein Greater Saphenous Vein * Femoral Vein Popliteal Vein Small Saphenous Vein * Proximal Calf Veins (* superficial vessels) The deep venous systems of both lower extremities from the common femoral remains to the proximal morales f veins are patent and compressible with augmentable flow and with normal waveforms. IMPRESSION: No evidence of bilateral lower extremity DVT from the common femoral veins to the proximal calf veins [facility], Workstation: [facility] 02/08/2024 11:23 AM
[2024-02-08 12:33] LABS: Appearance,Urine Clear (Clear); Bilirubin,Urine Negative (Negative); Blood,Urine Small (Negative); Color,Urine Light Yellow; Glucose,Urine (UA) Negative (Negative); Ketones,Urine Negative (Negative); Leukocyte Esterase,Urine Negative (Negative); Mucus,Urine Rare /hpf; Nitrite,Urine Negative (Negative); Protein,Urine Negative (Negative); RBC,Urine 11 /hpf (0-5); Specific Gravity,Urine 1.022 (1.001-1.035); Squamous Epithelial Cell,Urine <1 /hpf (0-4); Urobilinogen,Urine <2.0 mg/dL (<2.0)
[2024-02-08 13:00] VITALS: BP 133/81; PULSE 71; RESP 16
== END 2024-02-08 13:04 | disposition home or self-care (01) ==
LOC: EC 08:33
DX: I83.92 Asymptomatic varicose veins of left lower extremity (principal); Z88.0 Allergy status to penicillin; Z87.891 Personal history of nicotine dependence
CPT/HCPCS: 36415; 72100; 80053; 81001; 83735; 85025; 85610; 85730; 87086; 93970; 99284

== ENCOUNTER 2024-02-10 19:48 | Outpatient (CLI) | payer MEDICARE, BC ==
--- NOTE | 2024-02-17 23:27 | P.PCN ---
Date of Procedure: 02/10/24 Operative Findings: Polysomnography report Date of service is 02/10/2024 68-year-old female undergoing a screening polysomnography due to concerns of obstructive sleep apnea. The patient has loud snoring and his clearly describes episodes of apneas has been going on for many years. He has chronic h ypersomnia during the day. On examination, he has a Mallampati class IV. No cardiovascular complications. He has hyperlipidemia and hypothyroidism both being treated. He is obese and he carries a body mass index of 40.1. Polysomnography was ordered accordingly Physical findings The patient has a weight of 256 pounds with a body mass index of 40.1 Technical description The patient was studied using a standard complex polysomnography protocol that included recording of the Lead II EKG, Central, occipital and frontal EEG, right and left outer canthus EOG, submental EMG, right and left anterior tibialis EMG, respiratory airflow by thermocouple and or pressure/flow transducer, respiratory efforts by abdominal and thoracic PVDF belts, oxygen saturation by cable oximetry. Position by observation synchronized the PSG. Equipment used: [employer]. Sleep characteristics The total recording duration was 378 minutes. Total sleep time was 204.5 minutes. The overall sleep efficiency was 54.1%. The latency to sleep onset was 8.5 minutes. The latency to REM sleep was 76 minutes. The sleep architecture was categorized by 3.9% stage I, 87.8% stage II, 0.7% stage III and VII 0.6% REM sleep. The total arousal index was 29.6. The wake after sleep onset time 163.5 minutes Respiratory analysis Sleep study showed a total of 68 obstructive events of which 0 were obstructive apneas, 0 were mixed apneas and 68 were obstructive hypopneas. The resulting AHI was 12.6. No central apneas were noted and the central apnea index was 0. Noted the patient's disease was worse during REM sleep with an AHI of 58.1 during REM. Oxygenation analysis The patient had a baseline pulse ox while awake at 95% on room air oxygen. Lowest oxygen saturation recorded was 74%. The patient spent approximately 7 minutes of the sleep time below pulse ox of 89%. The lowest oxygen saturation was 74%. The saturations essentially occurred during REM sleep. Arousal events There was a total of 101 arousals with an index of 29.6, and the respiratory arousal index was 10.3 Periodic limb movements No significant periodic limb movements encountered Cardiac summary Average heart rate was 67 with a minimum heart rate of 61 and a maximum heart rate of 77 Assessment Obstructive sleep apnea, mild in severity with an AHI of 12.6, worse during REM sleep Nocturnal oxygen desaturations according predominant during REM sleep with a minimum pulse ox of 74% Diminished sleep efficiency of 54.1%. Abnormal sleep architecture with over representation of stage II sleep and diminished delta wave and REM Excessive sleep fragmentation with frequent arousals and a total arousal index of 29.6 Obesity with a BMI of 40.1 Chronic hypersomnia with an [place] score of 15 Plan Will discuss findings with the patient Will encourage weight loss We recommend CPAP therapy and the patient will come in to undergo a CPAP titration as long as willing to undertake the treatment
== END 2024-02-11 05:20 | disposition home or self-care (01) ==
LOC: 3 N SLEEP 19:48
PROVIDERS: ATTEND Internal Medicine Critical Care Medicine
DX: G47.33 Obstructive sleep apnea (adult) (pediatric) (principal); G47.10 Hypersomnia, unspecified; G47.52 REM sleep behavior disorder; G47.8 Other sleep disorders; G47.36 Sleep related hypoventilation in conditions classified elsewhere; E66.9 Obesity, unspecified; Z68.41 Body mass index [BMI] 40.0-44.9, adult; Z88.0 Allergy status to penicillin; Z87.891 Personal history of nicotine dependence
CPT/HCPCS: 95810

== ENCOUNTER 2024-05-16 19:47 | Outpatient (CLI) | payer MEDICARE, BC ==
--- NOTE | 2024-05-23 23:26 | P.PCN ---
Date of Procedure: 05/16/24 Operative Findings: 68-year-old female undergoing a screening polysomnography due to concerns of obstructive sleep apnea. The patient has loud snoring and his clearly describes episodes of apneas has been going on for many years. He has chronic hypersomnia during the day. On examination, he has a Mallampati class IV. No cardiovascular complications. He has hyperlipidemia and hypothyroidism both being treated. He is obese and he carries a body mass index of 40.1. The patient underwent a screening polysomnography and the patient was found to have mild AME with an AHI of 12.6, worse during REM sleep. The patient also encountered nocturnal oxygen desaturations. Overall sleep efficiency was poor calculated to be at 54.1%. Patient also had frequent nocturnal arousals. Based on that, CPAP therapy was recommended and the patient was asked to come into the sleep center to undergo a CPAP titration. Physical findings The patient has a weight of 256 pounds with a body mass index of 40.1 Technical description The patient was studied using a standard complex polysomnography protocol that included recording of the Lead II EKG, Central, occipital and frontal EEG, right and left outer canthus EOG, submental EMG, right and left anterior tibialis EMG, respiratory airflow by thermocouple and or pressure/flow transducer, respiratory efforts by abdominal and thoracic PVDF belts, oxygen saturation by cable oximetry. Position by observation synchronized the PSG. Equipment used: [employer]. Stepwise CPAP titration was done taking a deep of the patient's sleep stage and body positions. Sleep architecture The total recording duration was 384.0 minutes. The total sleep time was 310.5 minutes. The wake after sleep onset time was 62.5 minutes. The overall sleep efficiency improved while on CPAP therapy it was calculated to be at 80.9%. Related to sleep onset was 11 minutes. The sleep architecture was characterized by 0.2% stage I, 56% stage II, 0% stage III and 43.8% REM sleep. The total arousal index was 3.3 Respiratory analysis The patient was started on CPAP therapy, and the patient was started on a CPAP pressure of 8 cm of water and the pressure was gradually increased by increments of 1 cm to reach a maximum CPAP pressure of 12 cm of water. This was a very successful titration. All sleep stages were encountered. This study was done in the supine and nonsupine body position. I carefully reviewed the CPAP titration taking account the sleep stage and body position. It was noted that elevated CPAP pressures utilized, the patient had successful treatment without any significant obstructive apneas or hypopneas and the patient was able to maintain oxygen saturation above 90%. Noted lowest oxygen saturation during the titration was 92%. Sleep continuity summary The patient encountered a total of 17 arousals with an index of 3.3. The respiratory arousal index was 0 Periodic limb movements No significant periodic limb movement activity Cardiac summary Average heart rate was 64 with a minimum heart rate of 61 and the maximum heart of 69 Assessment Obstructive sleep apnea, mild in severity with an AHI of 12.6, worse during REM sleep, and the patient underwent a successful CPAP titration Nocturnal oxygen desaturations according predominant during REM sleep improved with CPAP therapy Diminished sleep efficiency, improved with CPAP therapy REM rebound, related to CPAP therapy Excessive sleep fragmentation with frequent arousals and a total arousal index of 29.6 Obesity with a BMI of 40.1 Chronic hypersomnia with an [place] score of 15 Plan Will discuss findings with the patient Will encourage weight loss Will initiate CPAP therapy. The patient is going to be offered an APAP machine and this will be set at a pressure of 6/12 cm of water with a C-Flex of 3. The patient will be provided a AirFit F20 fullface mask large size. The patient was seen back in the office in 30 to 90 days to assess clinical response and compliancy.
== END 2024-05-17 05:10 | disposition home or self-care (01) ==
LOC: 3 N SLEEP 19:47
PROVIDERS: ATTEND Internal Medicine Critical Care Medicine
DX: G47.33 Obstructive sleep apnea (adult) (pediatric) (principal); G47.10 Hypersomnia, unspecified; E66.9 Obesity, unspecified; Z68.41 Body mass index [BMI] 40.0-44.9, adult; Z99.89 Dependence on other enabling machines and devices; Z88.0 Allergy status to penicillin; Z87.891 Personal history of nicotine dependence
CPT/HCPCS: 95811

== ENCOUNTER → 2024-06-09 | Outpatient (CLI) | payer MEDICARE, BC ==
[2024-06-09 12:22] LABS: African American GFR (CKD) >90 (>60 ml/min/1.73 sqM); Blood Urea Nitrogen 11 mg/dL (9-20); Non-African American GFR(CKD) 89 (>60 ml/min/1.73 sqM)
--- NOTE | 2024-06-09 16:20 | CT ---
EXAMINATION TYPE: CT ChestAbdPelvis w con DATE OF EXAM: 06/09/2024 COMPARISON: None CLINICAL INDICATION: Male, 69 years old with history of R91.8 LUNG NODULE R31.[address] DLP: 1623 mGycm Automated exposure control for dose reduction was used. CONTRAST: CT scan of the chest, abdomen and pelvis is performed with Oral Contrast and with IV Contrast, patien t injected with 100 mL of Isovue 300. FINDINGS: CT chest: There is a small hiatal hernia. There is a 6 mm nodule in the right lower lobe. There is a 5.4 mm juxtapleural nodule in the left low er lobe posteriorly associated with the pleura.. There is no abnormal airspace/consolidative density or abnormal interstitial density. There is no pleural effusion, pleural thickening or pneumothorax. The great vessels and chest are normal there is no mediastinal, hilar or axillary adenopathy. No focal osseous lesions are seen. CT abdomen and pelvis: Gallbladder is normal without distention, pericholecystic fluid, wall thickening or gallstone. There is no biliary ductal dilatation. There is no focal mass or organomegaly involving the liver, pancreas, spleen or adrenal glands.. There is no solid renal mass or hydronephrosis. There is no retroperitoneal adenopathy or hemorrhage and the caliber of the abdominal aorta is normal. The bowel loops are normal in caliber and there is no dilatation or obstruction. No inflammatory ornelas ges identified in the bowel wall and mesentery. There is no free intracranial air or fluid. There is mild diverticulosis of the descending and sigmoid colon without CT evidence of diverticulitis. There is no pelvic mass or adenopathy. There is no free fluid within the pelvis. There is moderate prostatic hypertrophy. No focal osseous lesions are seen. Soft tissue the abdomen and pelvis are normal. IMPRESSION: 1. Single sub-6 mm nodules in both lower lobes as described above. If this is a high risk patient the n low dose CT thorax screening yearly intervals is recommended. 2. No acute cardiopulmonary disease. 3. No thoracic or abdominal aortic aneurysm. 4. Small hiatal hernia. 5. Moderate prostatic hypertrophy. 6. Mild diverticulosis but no acute changes within the abdomen or pelvis. [facility], , 06/09/2024 4:17 PM
== END | disposition home or self-care (01) ==
LOC: RADCTMAIN 11:27
PROVIDERS: ATTEND Family Medicine
DX: K57.30 Diverticulosis of large intestine without perforation or abscess without bleeding (principal); N40.0 Benign prostatic hyperplasia without lower urinary tract symptoms; R91.8 Other nonspecific abnormal finding of lung field; R31.9 Hematuria, unspecified; K44.9 Diaphragmatic hernia without obstruction or gangrene
CPT/HCPCS: 82565; 84520; 71260; 74177; 36415; Q9967

== ENCOUNTER → 2024-07-05 | Outpatient (CLI) | payer MEDICARE, BC ==
[2024-07-05 14:29] LABS: African American GFR (CKD) >90 (>60 ml/min/1.73 sqM); Blood Urea Nitrogen 15 mg/dL (9-20); Non-African American GFR(CKD) >90 (>60 ml/min/1.73 sqM)
--- NOTE | 2024-07-06 09:39 | CT ---
EXAMINATION TYPE: CT angio chest DATE OF EXAM: 07/05/2024 3:58 PM COMPARISON: None. CLINICAL INDICATION: Male, 69 years old with history of I71.20 THORACIC AORTIC ANEURYSM, WITHOUT RUPT URE,, aneurysm, TECHNIQUE: CT of the chest is performed on a spiral scan at 2 mm thick sections. Study is performed with intravenous contrast timed for evaluation for aortic evaluation. This will limit additional por tions of the evaluation. 10mm MIP images reconstructed by the technologist are reviewed on the compu ter in the coronal and sagittal planes. 3-D reconstructed images are reviewed on the computer. Contrast used:100 ml mL of Isovue 370 without and with IV Contrast, (none if empty) Oral contrast used: (none if empty) CT DLP: 1324.9 mGycm, Automated exposure control for dose reduction was used. FINDINGS: No persistent filling defects are evident to suggest an acute pulmonary embolism. No mediastinal or hilar adenopathy enlarged by CT criteria is evident. The main pulmonary artery diameter at the bifurcation is 3.3 cm. There is a three-vessel arch. Renal arteries appear normal. Celiac axis and superior mesenteric artery origins have calcification. Aorta at the diaphragm is 2.8 cm. Transverse dimension of the thoracic aorta is 3.2 cm. The ascending thoracic aorta at the main pulmonary artery is 4.3 cm. The aorta at the aortic root is 4.0 cm. Lung windows are clear. No significant coronary artery calcifications. Limited CT sections were through the upper abdomen. Tiny gallstones may be present in the neck of th e gallbladder. This density could be vascular in nature. IMPRESSION: 1. Ascending thoracic aortic aneurysm of 4.3 cm [facility], , 07/06/2024 9:37 AM
== END | disposition home or self-care (01) ==
LOC: RADCTMAIN 13:44
PROVIDERS: ATTEND Internal Medicine Interventional Cardiology
DX: I71.21 Aneurysm of the ascending aorta, without rupture (principal)
CPT/HCPCS: 82565; 84520; 71275; 36415; Q9967

== ENCOUNTER → 2024-07-10 | Outpatient (CLI) | payer MEDICARE, BC ==
[2024-07-10 09:51] LABS: HCT 47.3 % (39.6-50.0); MCH 30.6 pg (27.0-32.0); MCHC 33.8 g/dL (32.0-37.0); MCV 90.4 fL (80.0-97.0); Mean Platelet Volume 10.1 fL (9.5-12.2); Platelet Count 273 10*3/uL (140-440); RBC 5.23 10*6/uL (4.40-5.60); RDW 13.4 % (11.5-14.5)
[2024-07-10 10:11] LABS: African American GFR (CKD) >90 (>60 ml/min/1.73 sqM); Anion Gap 6 mmol/L; Blood Urea Nitrogen 13 mg/dL (9-20); Carbon Dioxide 30 mmol/L (22-30); Chloride 101 mmol/L (98-107); Non-African American GFR(CKD) 89 (>60 ml/min/1.73 sqM); Potassium 4.8 mmol/L (3.5-5.1); Sodium 137 mmol/L (137-145)
== END ==
LOC: PAT 08:47
PROVIDERS: ATTEND Internal Medicine Interventional Cardiology
DX: Z01.812 Encounter for preprocedural laboratory examination (principal); R06.02 Shortness of breath; Z88.1 Allergy status to other antibiotic agents; Z87.891 Personal history of nicotine dependence
CPT/HCPCS: 80051; 82565; 84520; 85027

== ENCOUNTER 2024-07-14 10:00 | Day surgery (SDC) | payer MEDICARE, BC ==
[~2024-07-14 10:00] MED LIST changes: +ALPRAZolam 0.25 MG TAB PO PRN; +ALPRAZolam 0.5 MG TAB PO PRN; -LIDOCAINE 1% (10MG/ML) FOR IV START INTRADERMA PRN; +NITROGLYCERIN SL TABS 0.4 MG TAB SUBLINGUAL PRN
[2024-07-14 10:23] VITALS: RESP 16; TEMP 97.5
[2024-07-14] MEDS: IV FLUID CONTINUATION 1,000 ML IV ONE (10:30)
[2024-07-14] MEDS: SODIUM CHLORIDE 0.9% 1,000 ML in EMPTY BAG 1 BAG IV SCH (10:31)
[2024-07-14] MEDS: ASPIRIN 325 MG TAB PO STA (10:32)
[2024-07-14] MEDS: fentaNYL (PF) 50 MCG/1 ML VIAL IVP ONE (12:36)
[2024-07-14] MEDS: HEPARIN SODIUM,PORCINE (1 ML) 2,500 UNIT in SODIUM CHLORIDE 0.9% 250 ML IRRIGATION PRN (12:36)
[2024-07-14] MEDS: HEPARIN SODIUM,PORCINE 10,000 UNIT in SODIUM CHLORIDE 0.9% 1,000 ML IRRIGATION PRN (12:36)
[2024-07-14] MEDS: LIDOCAINE 1% INJ 10MG/ML (20 ML MDV) SQ ONE (12:38)
[2024-07-14] MEDS: HEPARIN SODIUM 1,000 UN/ML (10ML VL) IVP ONE (12:49)
[2024-07-14] MEDS: IOPAMIDOL-370 100ML BTL INJ ONE (12:54)
[2024-07-14] MEDS ORDERED: RX INFO: IV CONTRAST WAS GIVEN 1 EACH MISC MISCELLANE PRN (13:10)
[2024-07-14] MEDS ORDERED: SODIUM CHLORIDE 0.9% 1,000 ML IV SCH (13:15)
--- NOTE | 2024-07-14 13:15 | P.CARDCATH ---
Date of Procedure: 07/14/24 Description of Procedure: Cardiac Catheterization: The patient is a 69-year-old male with known history of hypertension, hyperlipidemia, abnormal calcium coronary scoring as well has symptoms of chest discomfort and dyspnea who had an abnormal MPI. Recommendations were made regarding cardiac catheterization, the risks and the complications were discussed with the patient who is in full understanding and agreement. Procedure Description: Patient was brought to laboratory animal facility supervisor in fasting semi-sedated state after receiving Fentanyl and Benadryl achieiving moderate conscious sedated state. Using Xylocaine Anesthesia and modified Seldinger technique, a 6-Kiswahili sheath was introduced in the right radial artery . Subsequently, selective coronary angiography was performed using a 5-Kiswahili 3.5 bend Raquel catheter. Multiple views of the coronary artery including hemiaxial views were obtained. The right Raquel catheter was used to cross the aortic valve and LVEDP was calculated. Following that, catheter and sheath were removed. Hemostasis was obtained with deployment of vascular band . There was no immediate complication. Patient was returned to room in stable condition. Of note, the patient received a total of 5000 units of intravenous heparin as well as intra-arterial verapamil. Findings: Left main: This is a large size vessel, bifurcating into LAD and left circumflex, left main has no obstructive disease LAD: This is a large size vessel, reaching to the apex, giving rise to a large proximal diagonal branch. The left interesting artery and its branches have no obstructive disease Left circumflex: This is a dominant vessel, giving rise to 3 obtuse marginal branch, the third 1 is the largest, distally bifurcating into PDA and PLV. The left circumflex and its branches have no obstructive disease. RCA: This is a small nondominant vessel that has no evidence of obstructive disease Left Ventriculogram: Not performed Hemodynamics: There was no gradient across aortic valve, LVEDP was 18-20 mmHg Conclusion: 1. Normal coronary arteries with no evidence of high-grade stenosis 2. Left dominance 3. Elevated LVEDP Recommendations: I have recommended to continue present therapy with aggressive coronary risks modification, increasing his physical activity and reducing his weight. We will continue to attempt to optimize his coronary risk factors. The findings and the recommendations were discussed with the patient and the family and they were in full understanding and agreement. Duration of sedation is 18 minutes.
[2024-07-14 17:02] VITALS: BP 118/64; PULSE 64
[2024-07-14] MEDS ORDERED: PRAVASTATIN SODIUM 20 MG TAB PO SCH (21:00)
[2024-07-14] MEDS ORDERED: METOPROLOL TARTRATE 25 MG TAB PO SCH (21:00)
== END 2024-07-14 17:04 | disposition home or self-care (01) ==
LOC: CATHCVL 10:00
PROVIDERS: ATTEND Internal Medicine Interventional Cardiology
DX: R94.39 Abnormal result of other cardiovascular function study (principal); E78.2 Mixed hyperlipidemia; E07.9 Disorder of thyroid, unspecified; I71.21 Aneurysm of the ascending aorta, without rupture; G47.33 Obstructive sleep apnea (adult) (pediatric); Z88.0 Allergy status to penicillin; Z88.1 Allergy status to other antibiotic agents; Z87.891 Personal history of nicotine dependence; Z86.79 Personal history of other diseases of the circulatory system; Z99.89 Dependence on other enabling machines and devices; Z79.890 Hormone replacement therapy; Z79.82 Long term (current) use of aspirin; Z79.899 Other long term (current) drug therapy
CPT/HCPCS: 99152; 93458; C1769 ×2; C1894; J1644 ×3; J2003; Q9967; J3010

== ENCOUNTER → 2024-07-30 | Outpatient (CLI) | payer MEDICARE, BC ==
--- NOTE | 2024-08-02 07:26 | USB ---
Reason for Exam: Clinical finding. Technique: Method: Whole Breast Handheld. Findings: The whole breast of the left breast, the axilla of the left breast and the retroareolar of the left breast were scanned. Complete left breast ultrasound including evaluation of the subareolar and axillary regions. Just below the dermal layer there are a few scattered oval hyperechoic masses measuring up to 1.3 cm on long axis. No suspicious corresponding soft tissue masses on recent CT. A benign etiology such as multiple lipomas are suspected. Overall Assessment: Benign, BI-RAD 2 Management: Clinical Management of the left breast. Clinical management. A clinical breast exam by your physician is recommended on an annual basis and results should be correlated with mammographic findings. This exam should not preclude additional follow-up of suspicious palpable abnormalities. Results were given to the patient verbally at the time of exam. [facility], , 07/30/2024 8:31 AM. Electronically signed and approved by: Wilson Dc M.D.
== END | disposition home or self-care (01) ==
LOC: RADUSWWP 07:28
PROVIDERS: ATTEND Dermatology Procedural Dermatology
DX: R22.2 Localized swelling, mass and lump, trunk (principal)

== ENCOUNTER → 2024-10-12 | Outpatient (CLI) | payer MEDICARE, BC ==
[2024-10-12 10:35] LABS: African American GFR (CKD) >90 (>60 ml/min/1.73 sqM); Blood Urea Nitrogen 15 mg/dL (9-20); Non-African American GFR(CKD) >90 (>60 ml/min/1.73 sqM)
--- NOTE | 2024-10-12 16:25 | CT ---
EXAMINATION TYPE: CT chest w con DATE OF EXAM: 10/12/2024 11:18 AM COMPARISON: 07/05/2024, 06/09/2024 CLINICAL INDICATION: Male, 69 years old with history of R91.8 ABNORMAL LUNG FIELD; PHH, Abnormal lung rodriguez, pulmonary nodules, ascending aortic aneurysm TECHNIQUE: Multiple axial images were obtained through the chest with IV contrast. Sagittal and coron al reformats were created for review. Contrast used:100 mL of Isovue [address] DLP: 644.20 mGycm, Automated exposure control for dose reduction was used. FINDINGS: The heart is normal size without pericardial effusion. Scattered three-vessel coronary calcifications are noted. Ectatic aortic root at 3.7 cm, unchanged. Mild aneurysm ascending aorta 4.3 cm not significantly changed. Mild atherosclerotic arch calcifications with conventional arch vessel branching anatomy. Ectatic upper descending thoracic aorta at 3.4 cm is unchanged. No consolidation or pleural effusion. Mild emphysematous change. Minimal right apical pleural parench ymal scarring. Scattered 7 mm and smaller pulmonary nodules remain unchanged for 4 months. Additional 6 month follow-up is recommended. Visualized upper abdomen with suspected small 8 mm gallstone. There may be underlying fatty infiltrat ion of the liver. There is a small hiatal hernia and some minimal left-sided colonic diverticulosis p artially visualized. Bones: DISH lower thoracic spine. IMPRESSION: 1. Stable 4.3 cm ascending aortic aneurysm. 2. COPD with mild emphysema. 3. Scattered 7 mm and smaller pulmonary nodules remain unchanged for 4 months. Additional 6-12 month follow-up is recommended. 4. Small hiatal hernia. Suspect fatty infiltration of the liver. Also, suspect a tiny 8 mm gallstone. [facility], Workstation: [id number], 10/12/2024 4:23 PM
== END | disposition home or self-care (01) ==
LOC: RADCTMAIN 10:01
PROVIDERS: ATTEND Internal Medicine Critical Care Medicine
DX: R91.8 Other nonspecific abnormal finding of lung field (principal); J43.9 Emphysema, unspecified; K44.9 Diaphragmatic hernia without obstruction or gangrene; I71.21 Aneurysm of the ascending aorta, without rupture
CPT/HCPCS: 82565; 84520; 71260; 36415; Q9967